=== PATIENT | male | born 1960 | race African-American/Black ===

== ENCOUNTER 2017-06-05 12:08 | Inpatient (IN) | payer OTHER ==
[~2017-06-05] VITALS: Ht 182.9 cm; Wt 97.2 kg
--- NOTE | ~2017-06-05 | CO ---
Unit #: [id number] #: [id number] Patient: ROBERT REED [id number] [facility] [address] [facility]. [place], [place] [address] [id number] I MR#: [id number] NAME: ROBERT REED ROOM: 304 Age: 56 Sex: M Admission Date: 06/05/2017 : 1960 Attending Physician: Pedro Luis Huffman M.D. Primary Care Physician: Amy Chambers M.D. Consultation Date: 06/06/2017 CONSULTATION REPORT PRIMARY CARE PHYSICIAN Amy Chambers M.D. REASON FOR CONSULTATION Left arm weakness. PATIENT IDENTIFICATION This is a 56-year-old right-handed male, who is evaluated in room 304 at [facility]. SOURCE OF INFORMATION The patient and evaluation done by Dr. Erwin. PROBLEM LIST 1. New stroke identified on MRI. 2. Some left-sided weakness. 3. Prior knee surgery. HISTORY OF PRESENT ILLNESS This is a very pleasant 56-year-old gentleman, who actually presented with worsening weakness, I believe this started on Friday and he was at work and he thought because he was using his left arm much more as a trigger finger and he thought that was the problem and he asked his company medical personnel may be a doctor and he was given a left thumb splint and he noticed that he was not getting better and that is why he came here. He had some left hand finger injury and he thought that was getting worse and since not getting improved, he came here and he got an MRI, which showed the right basal ganglia infarct and a stroke workup is in progress. His random glucose was 103 to 121, but hemoglobin A1c was only 5.9, his cholesterol was 238, his LDL is 160, his blood pressure looks okay. He denies use of drugs or alcohol. He denies tobacco. He does not take any medication and his brother had a stroke, who is older than him. No cardiac or stroke issue known to me. No head injury or trauma, migraine, seizures. PAST MEDICAL HISTORY As discussed above. PAST SURGICAL HISTORY As discussed above. ALLERGIES None. Unit #: [id number] #: [id number] Patient: ROBERT REED HOME MEDICATION None. FAMILY HISTORY Reviewed and as discussed. SOCIAL HISTORY He is . He works with [employer], doing I believe work on the plane. He denies tobacco, alcohol, or drug use. REVIEW OF SYSTEMS Detailed review of system was attempted. CONSTITUTIONAL: The patient denies any weight issues, fever, chills, rigor, or sweats. HEENT: No headaches. No double vision, earache, runny nose, or sore throat. CARDIOVASCULAR: No chest pain, clubbing, cyanosis, orthopnea, or palpitation. PULMONARY: No shortness of air, cough, or expectoration. GASTROINTESTINAL: No nausea, vomiting, diarrhea, or constipation. GENITOURINARY: No genitourinary symptoms. EXTREMITIES: As discussed. BACK: No back problem. PSYCHIATRIC: No psychotic issue. NEUROLOGIC: As discussed. No other hematologic, dermatologic, or endocrine issues. PHYSICAL EXAMINATION VITAL SIGNS: Temperature 98.6, pulse 71, respirations 16, blood pressure 123/82, O2 saturations are 96% to 100% with weight of 212 pounds. BMI was 28. NEUROLOGIC: The patient is awake. He is alert. He is oriented. He can name. He can follow commands. No right/left confusion. No finger agnosia. Cranial nerve examination demonstrates full parra of vision to confrontation. Eye movements are conjugate. I did not see any ptosis. I did not see any nystagmus. Extraocular movements are intact. Sensation on the face and scalp are normal. Strength of muscles of facial expression are normal. Hearing seemed to be intact bilaterally. Tongue was midline. Uvula was midline. Palate elevations were normal. Head turning and shoulder shrugs were unremarkable. Motor examination demonstrated normal bulk, tone. Strength was essentially 5/5 on the right side and left side is very questionable 5-/5. Sensory examination intact for soft touch and pain sensation. No extinction was seen. Romberg was not evaluated, but I saw him walking and everything was fine. Very minimal hesitancy on the left side. I could not get any reflexes. Toes are equivocal. Coordination was normal. DIAGNOSTIC STUDIES LABORATORY RESULTS: Reviewed personally. Unit #: [id number] #: [id number] Patient: ROBERT REED IMAGING STUDIES: Reviewed personally. IMPRESSION This is a very interesting 56-year-old gentleman, who has a small vessel type infarct in the right basal ganglia, likely thrombotic. I will check his CTA of the neck. I will follow up on the echo. I will put him on aspirin. I will put him on Lipitor and we will go from there. I may do stroke workup in young, because there are no other causes. I will follow up and see how things go. If his labs are okay and PT/OT clears him, he can be discharged to follow up with Dr. Gutierrez, if needs a rehab that will be arranged may be inpatient or outpatient it depends upon what he does. He was not a tPA or interventional candidate, because symptoms started Friday night. Call me for any other questions, issues, or concerns and follow up on the workup as an outpatient. Dictated by... Sami Fields/caroline TD: 06/07/2017 12:43 JOB #: [id number] CONSULTATION REPORT Page 1 of 1 X Joo Yang MD X CONSULTATION REPORT
--- NOTE | ~2017-06-05 | MR18 ---
[facility] A Service of [facility] & [facility] RADIOLOGY TEXT RESULTS PATIENT: ROBERT REED LOCATION: C3A 304-01 : [birth year] UNIT #: [id number] AGE: [address]: CHERI HOFFMANN MD SEX: M ORDER DR: [id number] [facility] [address] [facility] [address] [address]. [place], [place] [address] [id number] E MR#: [id number] Acc #: [id number] NAME: ROBERT REED : 1960 SEX: M STUDY DATE/TIME: 06/05/2017 14:59 UNIT: BAUTISTA ROOM: STUDY DESCRIPTION: MR Brain Wo Contrast Attending Physician: Edgar Stephenson M.D. Ordering Physician: Edgar Stephenson M.D. Primary Care Physician: Amy Chambers M.D. MRI CENTER REPORT This report is preliminary unless electronic signature is present. EXAM MRI of the brain without HISTORY Left arm weakness and numbness starting around 06/05/2017 at 12:08. Patient stood up and became dizzy June 03 at 4:00 p.m. left face numbness and weakness left arm numbness and weakness and left leg weakness since then. 06/05/2017 at 12:08 is time of arrival, symptom onset is June 03. COMMENT MRI of the brain was performed without contrast using routine 1.5T imaging technique. No comparison study of the brain. There is a focus of abnormally restricted diffusion involving the posterior limb of the right internal capsule portion of the adjacent putamen portion of the adjacent thalamus. It measures about 1.7 x 1 cm dimension. It is associated with minor localized mass effect. There is no evidence for hemorrhagic transformation. In this location it is probably a small vessel insult. Please correlate for risk factors. No MRI evidence for intracranial hemorrhage. The midline structures are unremarkable. The major arterial intracranial flow voids are maintained. No extraaxial fluid collection or intracranial mass effect. The mastoid air cells are clear. There is a mucous retention cyst or polyp in the right maxillary sinus. Allowing for some motion there is mild nonspecific white matter signal abnormality again most likely due to small vessel disease given age group. Probably an old lacunar type insult in the left thalamus. IMPRESSION 1. There is a recent ischemic insult involving the posterior limb of the STS. [facility] A Service of [facility] & [facility] RADIOLOGY TEXT RESULTS PATIENT: ROBERT REED LOCATION: C3A 304-01 : [birth year] UNIT #: [id number] AGE: [address]: CHERI HOFFMANN MD SEX: M ORDER DR: right internal capsule measuring up to about 1 x 1.7 cm dimension. There is no appreciable mass effect or hemorrhagic transformation. It is likely a recent small vessel insult but please correlate for risk factors. 2. Mild preexisting probable sequelae of small vessel disease. 3. No intracranial mass effect or extraaxial fluid collection. Study is motion limited. STAT * RESULT Dictated by... Gia Almodovar M.D. THIS IS AN ELECTRONICALLY VERIFIED REPORT Gia Almodovar M.D. at 06/05/2017 10:41 PM AMOR/ludwig TD: 06/05/2017 16:03 JOB #: [id number] MRI CENTER REPORT Page 1 of 1 COPY
--- NOTE | ~2017-06-05 | CT23 ---
[facility] A Service of [facility] & [facility] RADIOLOGY TEXT RESULTS PATIENT: ROBERT REED LOCATION: [facility] 304-01 : [birth year] UNIT #: [id number] AGE: [address]: KEVAN BALDERAS V SEX: M ORDER DR: [id number] [facility] [address] [facility]. [place], [place] [address] [id number] I MR#: [id number] Acc #: [id number] NAME: ROBERT REED : 1960 SEX: M STUDY DATE/TIME: 06/06/2017 18:24 UNIT: [address] ROOM: [facility] STUDY DESCRIPTION: CT Angio Neck Attending Physician: Kevan Balderas M.D. Ordering Physician: Joo Yang M.D. Primary Care Physician: Amy Chambers M.D. MEDICAL IMAGING REPORT This report is preliminary unless electronic signature is present EXAM CTA head and neck HISTORY Refer below. FINDINGS Please refer to the CTA head report on the same date for complete details. Dictated by... Flaco Dey M.D. THIS IS AN ELECTRONICALLY VERIFIED REPORT Flaco Dey M.D. at 06/07/2017 7:58 PM FEL/pcl TD: 06/07/2017 17:20 JOB #: [id number] MEDICAL IMAGING REPORT Page 1 of 1 COPY
--- NOTE | ~2017-06-05 | CT17 ---
[facility] A Service of [facility] & [facility] & [facility] RADIOLOGY TEXT RESULTS PATIENT: ROBERT REED LOCATION: A 304-01 : [birth year] UNIT #: [id number] AGE: [address]: KEVAN BALDERAS V SEX: M ORDER DR: [id number] [facility] [address] [facility]. [place], [place] [address] [id number] I MR#: [id number] Acc #: [id number] NAME: ROBERT REED : 1960 SEX: M STUDY DATE/TIME: 06/06/2017 18:24 UNIT: A U ROOM: 304 STUDY DESCRIPTION: CT Angio Head Attending Physician: Kevan Balderas M.D. Ordering Physician: Joo Yang M.D. Primary Care Physician: Amy Chambers M.D. MEDICAL IMAGING REPORT This report is preliminary unless electronic signature is present EXAM CT scan of the head and neck with angiographic reconstructions HISTORY Left arm and leg weakness starting 06/03/2017. TECHNIQUE Patient was given 100 cc of Isovue-370. Spiral imaging was performed from the aortic arch through the brain. 3-D reconstructions of the arterial structures were generated. NASCET criteria was utilized. This CT exam was performed with one or more of the following radiation dose reduction techniques: automatic exposure control, adjustment of mA and/or kV according to patient size, and iterative reconstruction. COMPARISON STUDIES None. FINDINGS Lung apices are clear. The thyroid gland, submandibular gland and parotid glands are normal. The images are very grainy. No brain abnormalities are visualized but the study is limited by grainy images. There is a 2.1 cm air collection to the right of the trachea in expected location of the esophagus in the upper chest. I presume this represents esophageal diverticulum. VASCULAR: The aortic arch is normal in size. The great vessels are patent. The vertebral arteries are localized from the subclavian arteries and they are equal in size. They unite to perform the basilar artery. The common carotid arteries and carotid bifurcations appear normal bilaterally. There is no stenosis identified. There is no occlusion. The basilar artery and posterior cerebral arteries are normal in [facility]. [facility] A Service of [facility] & [facility] & [facility] RADIOLOGY TEXT RESULTS PATIENT: ROBERT REED LOCATION: C3A 304-01 : [birth year] UNIT #: [id number] AGE: [address]: KEVAN BALDERAS V SEX: M ORDER DR: appearance. The middle and anterior cerebral arteries are normal in appearance. Anterior communicating artery is present. IMPRESSION 1. This study is limited by grainy images. 2. There is no arterial stenosis or occlusion identified. 3. There is a somewhat irregular 2.1 cm air collection to the right of the upper trachea and esophagus, probably representing esophageal diverticulum. 4. Otherwise, normal. Dictated by... Flaco Dey M.D. THIS IS AN ELECTRONICALLY VERIFIED REPORT Flaco Dey M.D. at 06/07/2017 7:58 PM FEL/pcl TD: 06/07/2017 17:14 JOB #: [id number] MEDICAL IMAGING REPORT Page 1 of 1 COPY
--- NOTE | ~2017-06-05 | EKG ---
PATIENT: ROBERT REED UNIT #: [id number] Ventricular Rate: 65 BPM Atrial Rate: 65 BPM P-R Interval: 164 ms QRS Duration: 86 ms Q-T Interval: 400 ms QTC Calculation(Bezet): 416 ms P [place]: -5 degrees Calculated R [place]: 0 degrees Calculated T [place]: 7 degrees Diagnosis Line: Normal sinus rhythm Diagnosis Line: Minimal voltage criteria for LVH, may be normal Diagnosis Line: variant Diagnosis Line: Nonspecific ST abnormality Diagnosis Line: Abnormal ECG Diagnosis Line: No previous ECGs available Diagnosis Line: Confirmed by HANNY VASQUEZ MD ([id number]) on Diagnosis Line: 06/06/2017 10:52:54 AM INTERPRETING MD: PEDRO RANGEL
--- NOTE | ~2017-06-05 | HP ---
Unit #: [id number] #: [id number] Patient: ROBERT REED [id number] [address] [address] [id number] E MR#: [id number] NAME: ROBERT REED ROOM: Age: 56 Sex: M Admission Date: 06/05/2017 : 1960 Attending Physician: Edgar Stephenson M.D. Primary Care Physician: Amy Chambers M.D. HISTORY AND PHYSICAL CHIEF COMPLAINT Left arm and leg weakness. HISTORY OF PRESENT ILLNESS The patient is a 56-year-old male with no significant past medical history who presented to the emergency room complaining of left arm and leg weakness that started on Friday. The patient stated the weakness lasted for a few hours. The patient also complained of dizziness associated with the weakness. The weakness was gone; however, the weakness came back last night again, and that made him come to the emergency room. The patient had an MRI of the brain that showed a recent ischemic event in the right internal capsule and is being admitted for the above reasons. The patient had a left hand finger injury four months ago, and it has been gradually worsening. The patient initially thought that the weakness was coming from the left thumb injury and went to the doctor's office yesterday for the thumb cast. PAST MEDICAL HISTORY None. PAST SURGICAL HISTORY Knee surgery. SOCIAL HISTORY No history of smoking cigarettes, drinking alcohol, or any illicit drug abuse. Works at [employer]. FAMILY HISTORY Reviewed and none. ALLERGIES No known drug allergies. HOME MEDICATIONS None. REVIEW OF SYSTEMS Positive for weakness. Positive for injury of the left arm thumb and dizziness. Denies any shortness of breath. Denies any chest pain. Denies any nausea and vomiting. All other systems have been reviewed and none. PHYSICAL EXAMINATION Unit #: [id number] #: [id number] Patient: ROBERT REED GENERAL: Patient is lying in bed not in acute distress. VITAL SIGNS: Temperature is 97.8, pulse 75, respiratory rate 16, blood pressure 114/81, saturating 100% at room air. HEENT: Head atraumatic, normocephalic. Pupils equal, round, and reactive to light and accommodation. Extraocular movements are intact. NECK: Supple. LUNGS: Decreased air entry at the bases. HEART: Regular rate and rhythm. ABDOMEN: Soft. Positive bowel sounds. EXTREMITIES: No cyanosis, no clubbing. Positive for thumb injury of the left hand. NEUROLOGIC: Alert, awake, and oriented. Weakness is 4 over 5 on the left side compared to 5 over 5 on the right side. PSYCHIATRIC: Mood and affect are appropriate. DIAGNOSTIC STUDIES LABORATORY: WBC 5, hemoglobin 13.7, hematocrit 44.1, and platelets 264,000. Glucose is 92. Troponin less than 0.05. Sodium 135, potassium 4.8, chloride 99, bicarb 30, glucose 103, BUN 16, creatinine 1.1, calcium is 9.2, AST 23, ALT 21, alkaline phosphatase 73, albumin 4.4. IMAGING: MRI of the brain without contrast showed there is a recent ischemic insult involving the posterior limb of the right internal capsule measuring up to 1 x 1.7 cm dimension. There is no appreciable mass effect or hemorrhagic transformation. It is likely a recent small vessel insult, but please correlate for risk factors. Mild preexisting probable sequelae of small vessel disease. No intracranial mass effect or extraaxial fluid collection. Study is motion limited. ASSESSMENT 1. Cerebrovascular accident. 2. Left-sided weakness. PLAN Admit the patient to inpatient with telemetry. Patient will have a Neurology consult for the stroke workup. Check the echo. Continue with aspirin and statin. Repeat the labs again in the morning, and check a lipid profile, hemoglobin A1c, and TSH, and further recommendations will follow. Dictated by Sami Santana TD: 06/05/2017 17:17 JOB #: [id number] HISTORY AND PHYSICAL Page 1 of 1 X CHERI HOFFMANN MD X HISTORY AND PHYSICAL
--- NOTE | ~2017-06-05 | CR72 ---
[facility] A Service of [facility] RADIOLOGY TEXT RESULTS PATIENT: ROBERT REED LOCATION: [facility] 304-01 : [birth year] UNIT #: [id number] AGE: [address]: CHERI ERWIN MD SEX: M ORDER DR: [id number] [facility] [address] [facility]. [place], [place] [address] [id number] I MR#: [id number] Acc #: [id number] NAME: ROBERT REED : 1960 SEX: M STUDY DATE/TIME: 06/05/2017 13:25 UNIT: [facility] ROOM: [address] STUDY DESCRIPTION: CR Chest Single View Portable Attending Physician: Cheri Erwin M.D. Ordering Physician: Edgar Stephenson M.D. Primary Care Physician: Amy Chambers M.D. MEDICAL IMAGING REPORT This report is preliminary unless electronic signature is present EXAM Portable chest INDICATIONS Shortness of air, left arm and leg weakness, symptoms going on for 2 days. COMPARISON 11/27/2011 FINDINGS A portable view of the chest is obtained. The heart size and vascularity are normal, the lungs are clear and the bones are unremarkable. IMPRESSION No active disease. Dictated by... Flaco Dey M.D. THIS IS AN ELECTRONICALLY VERIFIED REPORT Flaco Dey M.D. at 06/05/2017 10:19 PM CRISTINA/genevieve TD: 06/05/2017 17:36 JOB #: [id number] MEDICAL IMAGING REPORT Page 1 of 1 COPY
--- NOTE | ~2017-06-05 | DS ---
Unit #: [id number] #: [id number] Patient: ROBERT REED [id number] [address] [address] [id number] I MR#: [id number] NAME: ROBERT REED ROOM: 304 Age: 56 Sex: M Admission Date: 06/05/2017 : 1960 Discharge Date: 06/07/2017 Attending Physician: Pedro Luis Huffman M.D. Primary Care Physician: Amy Chambers M.D. DISCHARGE SUMMARY DISCHARGE DIAGNOSIS CVA involving the posterior limb of the right internal capsule. HOSPITAL COURSE The patient is a 56-year-old male, who presented to [facility] Emergency Department with a complaint of left-sided weakness. It started the day prior to admission. It resolved initially for several hours and then returned. As a result, the patient came to the emergency department. The patient was admitted for new CVA and underwent MRI of the brain. MRI shows ischemic insult that involves the posterior limb of the right internal capsule and measures 1 x 1.7 cm. The patient was seen in consultation by Neurology. The patient's LDL cholesterol was noted to be 160, otherwise no other causative symptoms were found. At this time, Neurology has recommended outpatient followup with [facility] for a possible MRA of the head and neck. The patient has been started on and will be discharged on Lipitor and aspirin. DISCHARGE MEDICATIONS Lipitor 40 mg p.o. q.h.s. and aspirin 325 mg daily. FOLLOWUP As mentioned the patient will follow [facility] at the earliest available appointment. I have discussed this with the patient and he understands. Dictated by... Guanakito Baugh M.D. RAMSES/caroline TD: 06/11/2017 01:04 JOB #: [id number] Unit #: [id number] #: [id number] Patient: ROBERT REED DISCHARGE SUMMARY Page 1 of 1 X Guanakito Baugh MD X DISCHARGE SUMMARY
[~2017-06-05 12:08] MED LIST: NO MEDICATIONS
[2017-06-05 13:57] LABS: BASOPHIL% 0.4 % (0-2.5); EOSINOPHIL# 0.1 X10e3 (0-0.7); EOSINOPHIL% 1.6 % (0.0-7.0); HEMATOCRIT 44.1 % (38.0-50.0); HEMOGLOBIN 13.7 gm/dL (13.0-16.0); LYMPHOCYTE# 1.6 X10e3 (1.0-3.5); LYMPHOCYTE% 31.5 % (17.0-45.0); MEAN CELL VOLUME 71.6 FL (83-96); MEAN CORPUSCULAR HEMOGLOBIN 22.3 PG (28-34); MEAN CORPUSCULAR HGB CONC 31.2 g/dL (30-36); MEAN PLATELET VOLUME 7.4 FL (6.5-11.5); MONOCYTE# 0.4 X10e3 (0-1.0); MONOCYTE% 8.6 % (3.0-12.0); NEUTROPHIL# 2.9 X10e3 (1.5-7.1); NEUTROPHIL% 57.9 % (40-75); PLATELET COUNT 264 X10e3 (140-420); RED BLOOD COUNT 6.16 X10e (3.90-5.60); RED CELL DISTRIBUTION WIDTH 14.2 % (11.0-15.5)
[2017-06-05 13:58] LABS: DIFF IND NO
[2017-06-05 14:15] LABS: POC - CKMB 2.6 ng/mL (0.0-7.9); POC - TROPONIN <0.05 ng/mL (<=0.05)
[2017-06-05 14:22] LABS: ALBUMIN SERUM 4.4 g/dL (3.5-5.0); ALKALINE PHOSPHATASE 73 U/L (32-92); ALT (SGPT) 21 U/L (10-40); AST (SGOT) 23 U/L (10-42); BILIRUBIN,TOTAL 0.5 mg/dL (0.2-2.0); BLOOD UREA NITROGEN 16 mg/dL (9-23); BUN/CREATININE RATIO 14.54; CALCIUM SERUM 9.2 mg/dL (8.4-10.2); CARBON DIOXIDE 30 mmol/L (22-31); CHLORIDE 99 mmol/L (100-111); CREATININE SERUM 1.1 mg/dL (0.6-1.4); GLOM FILT RATE Estimated 87.8 mL/min (>60); GLUCOSE FASTING 103 mg/dL (70-110); POTASSIUM 4.8 mmol/L (3.5-5.1); PROTEIN TOTAL SERUM 8.4 g/dL (6.0-8.3); SODIUM 135 mmol/L (135-145)
[2017-06-05 14:23] LABS: BILIRUBIN, DIRECT <0.1 mg/dL (0.0-0.2); BILIRUBIN,INDIRECT 0.4 mg/dL (0.0-0.9)
[2017-06-05] MEDS ORDERED: NO HOME MEDS (18:44)
[2017-06-05 19:43] LABS: CHOLESTEROL 238 mg/dL (0-200); HDL CHOLESTEROL 63 mg/dL (29-75); LDL/HDL RATIO 3 RATIO (0-4); TRIGLYCERIDES 73 mg/dL (10-160)
[2017-06-05 19:50] LABS: LDL CHOLESTEROL 160 mg/dL (-130)
[2017-06-06 05:36] LABS: HEMATOCRIT 42.3 % (38.0-50.0); HEMOGLOBIN 13.6 gm/dL (13.0-16.0); MEAN CELL VOLUME 71.6 FL (83-96); MEAN CORPUSCULAR HEMOGLOBIN 23.1 PG (28-34); MEAN CORPUSCULAR HGB CONC 32.2 g/dL (30-36); MEAN PLATELET VOLUME 7.7 FL (6.5-11.5); RED BLOOD COUNT 5.9 X10e (3.90-5.60); RED CELL DISTRIBUTION WIDTH 14.5 % (11.0-15.5); WHITE BLOOD COUNT 5.2 X10e3 (4.0-10.5)
[2017-06-06 07:06] LABS: CALCIUM SERUM 9.3 mg/dL (8.4-10.2); GLOM FILT RATE Estimated 98.5 mL/min (>60); POTASSIUM 4.1 mmol/L (3.5-5.1)
[2017-06-06 16:46] LABS: THYROID STIMULATING HORMONE 1.73 uIU/ml (0.34-5.60)
[2017-06-06 16:51] LABS: FOLATE (FOLIC ACID) 12.2 ng/mL (>5.8)
[2017-06-06 16:53] LABS: FREE THYROXIN (T4) 0.87 ng/dL (0.58-1.64)
[2017-06-07] MEDS ORDERED: LIPITOR40 MG PO (15:27)
[2017-06-07] MEDS ORDERED: BAYER ASPIRIN325 M1 PO (15:28)
== END 2017-06-07 16:45 | disposition home or self-care (01) | DRG 65 ==
LOC: CED 12:08 → CEDOF 17:27 → C3A PCU 18:20
PROVIDERS: Emergency Medicine; Internal Medicine; Psychiatry & Neurology Neurology
PROC: B246YZZ Ultrasonography of Right and Left Heart using Other Contrast (ICD-10-PCS; principal; 2017-06-06)
PROC: B325YZZ Computerized Tomography (CT Scan) of Bilateral Common Carotid Arteries using Other Contrast (ICD-10-PCS; 2017-06-06)
PROC: B32GYZZ Computerized Tomography (CT Scan) of Bilateral Vertebral Arteries using Other Contrast (ICD-10-PCS; 2017-06-06)
DX: I63.09 Cerebral infarction due to thrombosis of other precerebral artery (principal); G81.94 Hemiplegia, unspecified affecting left nondominant side
CPT/HCPCS: 36415; 70496; 70498; 70551; 71010; 80048; 80061; 80076; 82553; 82607; 82746; 82947; 83036; 84439; 84443; 84484; 85025; 85027; 85652; 86140; 93005; 93306; 94760; 99285; J1650; Q9967